=== PATIENT | female | born 1960 | race Caucasian/White ===

== ENCOUNTER 2019-03-03 16:14 | Emergency (ER) | payer BC ==
--- NOTE | 2019-03-03 16:44 | Emergency Department Record ---
History of Present Illness - General Chief Complaint: Recheck - Other Stated Complaint: DOCTOR REFERRED FOR POTASSIUM LEVELS Time Seen by Provider: 03/03/19 16:29 Source: Patient - History of Present Illness Initial Comments: The patient was told to come here for IV potassium because her levels are low which were drawn earlier today. Labs in our system from today show K= 2.7. The patient states that she has been on over the counter potassium of an unknown strength for some time. About 3 weeks ago she began having GI symptoms and is scheduled to have a GI procedure and so she stopped taking her over the counter potassium. She has been on spironolactone for a few years and the dose has not changed. When her PCP saw her lab drawn today, she told her to come to the [facility]pt to get potassium replacement. MD Complaint: Abnormal lab - Related Data Home Medications Medication Instructions Recorded Confirmed Last Taken Bupropion HCl [Bupropion Xl] 150 mg PO BID 03/03/19 03/03/19 03/03/19 Furosemide [Lasix] 20 mg PO DAILY 03/03/19 03/03/19 03/03/19 Levothyroxine Sodium [Synthroid] 88 mcg PO DAILY 03/03/19 03/03/19 03/03/19 Pantoprazole Sodium [Protonix] 40 mg PO DAILY 03/03/19 03/03/19 03/02/19 Spironolactone [Aldactone] 25 mg PO DAILY 03/03/19 03/03/19 03/03/19 Trazodone HCl 50 mg PO QHS 03/03/19 03/03/19 03/02/19 Allergies Allergy/AdvReac Type Severity Reaction Status Date / Time acetaminophen [From Vicodin] Allergy HYPERSENSIT Verified 03/03/19 16:59 IVITY hydrocodone [From Vicodin] Allergy HYPERSENSIT Verified 03/03/19 16:59 IVITY propranolol Allergy SWELLING Verified 03/03/19 16:59 OF THE FACE Review of Systems Reviewed: No additional complaints except as noted below Constitutional: Reports: As per HPI. Denies: Chills, Fever, Malaise, Night sweats, Weakness, Weight change Eyes: Reports: As per HPI. Denies: Eye discharge, Eye pain, Photophobia, Vision change ENT: Reports: As per HPI. Denies: Congestion, Dental pain, Ear pain, Epistaxis , Hearing loss, Throat pain Respiratory: Reports: As per HPI. Denies: Cough, Dyspnea, Hemoptysis, Stridor, Wheezes Cardiovascular: Reports: As per HPI. Denies: Arrhythmia, Chest pain, Dyspnea on exertion, Edema, Murmurs, Orthopnea, Palpitations, Paroxysmal nocturnal dyspnea, Rheumatic Fever, Syncope Endocrine: Reports: As per HPI. Denies: Fatigue, Heat or cold intolerance, Polydipsia, Polyuria Gastrointestinal: Reports: As per HPI. Denies: Abdominal pain, Constipation, Diarrhea, Hematemesis, Hematochezia, Melena, Nausea, Vomiting Genitourinary: Reports: As per HPI. Denies: Abnormal menses, Discharge, Dyspareunia, Dysuria, Frequency, Hematuria, Incontinence, Retention, Urgency Musculoskeletal: Reports: As per HPI. Denies: Arthralgia, Back pain, Gout, Joint swelling, Myalgia, Neck pain Skin: Reports: As per HPI. Denies: Bruising, Change in color, Change in hair/ nails, Lesions, Pruritus, Rash Neurological: Reports: As per HPI. Denies: Abnormal gait, Confusion, Headache, Numbness, Paresthesias, Seizure, Tingling, Tremors, Vertigo, Weakness Psychiatric: Reports: As per HPI. Denies: Anxiety, Auditory hallucinations, Depression, Homicidal thoughts, Suicidal thoughts, Visual hallucinations Hematological/Lymphatic: Reports: As per HPI. Denies: Anemia, Blood Clots, Easy bleeding, Easy bruising, Swollen glands Physical Exam - General General Appearance: Alert, Oriented x3, Cooperative, No acute distress - Head Head exam: Normal inspection - Eye Eye exam: Normal appearance, PERRL, EOMI. negative: Conjunctival injection, Nystagmus Pupils: Normal accommodation - ENT ENT exam: Normal exam, Mucous membranes moist, Normal external ear exam, Normal orophraynx, TM's normal bilaterally Ear exam: Normal external inspection. negative: External canal tenderness Nasal Exam: Normal inspection. negative: Discharge, Sinus tenderness Mouth exam: Normal external inspection, Tongue normal Teeth exam: Normal inspection. negative: Dental caries Throat exam: Normal inspection. negative: Tonsillar erythema, Tonsillar exudate - Neck Neck exam: Normal inspection, Full ROM. negative: Lymphadenopathy, Meningismus , Tenderness - Respiratory Respiratory exam: Normal lung sounds bilaterally. negative: Accessory muscle use, Chest wall tenderness, Decreased breath sounds, Respiratory distress - Cardiovascular Cardiovascular Exam: Regular rate, Normal rhythm, Normal heart sounds - GI/Abdominal GI/Abdominal exam: Soft, Normal bowel sounds. negative: Tenderness - Rectal Rectal exam: Deferred - exam: Deferred - Extremities Extremities exam: Normal inspection, Full ROM, Normal capillary refill. negative: Calf tenderness, Pedal edema, Tenderness - Back Back exam: Reports: Normal inspection, Full ROM. Denies: CVA tenderness (R), CVA tenderness (L), Muscle spasm, Rash noted, Tenderness - Neurological Neurological exam: Alert, CN II-XII intact, Normal gait, Oriented X3, Reflexes normal. negative: Altered, Motor sensory deficit - Psychiatric Psychiatric exam: Normal affect, Normal mood - Skin Skin exam: Dry, Intact, Normal color, Warm Course - Reevaluation(s) Reevaluation #1: The patient was instructed to take the second dose of 40 meq tonight at bedtime , and then to resume her prior potassium doses. She does need to be seen tomorrow to recheck her labs through her PCP. She also was told to obtain a potassium prescription from her PCP for potassium 03/03/19 16:57 Medical Decision Making - Management Options MDM Management: No Additional Work-up Planned Disposition Disposition: Discharge Clinical Impression: Hypokalemia Disposition: Home, Self-Care Condition: (1) Good Instructions: Hypokalemia (ED) Additional Instructions: Take the one potassium (25 meq) tonight before bedtime, and then the other potassium (25 meq) in the mornign. Start taking your previous potassium pills from before daily as your previously did. Call your PCP for repeat blood draw to recheck your potassium tomorrow without fail. Obtain a prescription of potassium for shelter medication from your PCP. Forms: Patient Portal Access Quality - Quality Measures Quality Measures: N/A - Blood Pressure Screening Does Patient Have Any of the Following: No Blood Pressure Classification: Pre-Hypertensive BP Reading Systolic Measurement: 137 Diastolic Measurement: 83 Screening for High Blood Pressure: Patient Exclusion, Hx of HTN [G9744]
[2019-03-03] MEDS ORDERED: POTASSIUM CHLORIDE 20 MEQ TABLET PO ONE (16:52)
[2019-03-03] MEDS ORDERED: POTASSIUM BICARB./CIT AC 25 MEQ EFF.TAB PO STA (17:12)
== END 2019-03-03 17:23 | disposition home or self-care (01) ==
LOC: ER 16:14
DX: E87.6 Hypokalemia (principal)
CPT/HCPCS: 99282; 99283